=== PATIENT | male | born 1985 | race Caucasian/White ===

== ENCOUNTER 2017-03-19 15:08 | Emergency (ER) | payer OTHER ==
[~2017-03-19] VITALS: Ht 190.5 cm; Wt 90.9 kg
[~2017-03-19 15:08] MED LIST: ACET-1256 PO; IBUP-1450 PO
[2017-03-19 15:10] VITALS: TEMP 37.1; Ht 190.5 cm; Wt 90.9 kg
[2017-03-19] MEDS ORDERED: ACET-1256 PO (15:51)
[2017-03-19] MEDS ORDERED: IBUP-103 PO (15:51)
--- NOTE | 2017-03-19 16:23 | DIAGNOSTIC IMAGING REPORT ---
R EXTREMITY NONVASCULAR LIMITED CLINICAL HISTORY: Right axilla mass. Pt can locate COMPARISON STUDY: None. FINDINGS: Real-time sonographic imaging of the right axilla was performed. At the patient's area of interest there is a 2.5 x 2.2 x 1.9 cm complex cystic lesion which is well circumscribed. This abuts the skin surface. This is not demonstrate significant color flow. IMPRESSION: A 2.5 x 2.2 x 1.9 cm complex subcutaneous cystic lesion within the right axilla. This favors a complex cyst such as an epidermal inclusion cyst. However, a cystic mass or a necrotic lymph node is considered less likely but not entirely excluded. Recommend follow-up to ensure resolution. In addition, nonemergent fine-needle aspiration can also be performed. Electronically signed by: Primo Brock M.D. 03/19/2017 4:22 PM Dictated Date/Time: 03/19/2017 4:19 PM
[2017-03-19 17:00] VITALS: BP 116/71; PULSE 74; O2SAT 97
--- NOTE | 2017-03-19 17:34 | EMERGENCY ROOM VISIT NOTE ---
History First contact with patient: 15:14 Chief Complaint: FOREIGNBODY ANY BODY PART Stated Complaint: LUMP IN ARMPIT History of Present Illness The patient is a 31 year old male who presents to the Emergency Room with complaints of lump in his right armpit that is increasing in size over the past 2 days. The patient does not have injury or trauma. No recent infection, fever , chills, or other symptoms. He does not have a history of cancer. The lump is mildly uncomfortable, and he has not had similar symptoms in the past. He rates his discomfort a 4/10. Review of Systems More than 10 systems were reviewed and otherwise negative with the exception of history of present illness. Past Medical/Surgical History Medical Problems: (1) No Known Active Medical Problems Family History Hypertension Social History Smoking Status: Current Every Day Smoker Alcohol Use: heavy Drug Use: none Marital Status: single Occupation Status: employed Current/Historical Medications Scheduled PRN Acetaminophen (Tylenol), 1,000 MG PO Q6H PRN for Pain or Fever Ibuprofen Tab (Advil), 400-600 MG PO Q6H PRN for Pain or Fever Physical Exam Vital Signs Date Time Temp Pulse Resp B/P (MAP) Pulse Ox O2 Delivery O2 Flow Rate FiO2 03/19/17 17:00 74 16 116/71 97 03/19/17 15:10 37.1 102 18 163/116 99 Room Air Physical Exam VITALS: Vitals are noted on the nurse's note and reviewed by myself. Vital signs stable. GENERAL: Well-developed, well-nourished, white male, who is in no acute distress and resting comfortably. Patient is cooperative with the examination. NECK: Supple without nuchal rigidity. No lymphadenopathy. No thyromegaly. Cervical spine is nontender. HEART: Regular rate and rhythm without murmurs gallops or rubs. LUNGS: Clear to auscultation bilaterally without wheezes, rales or rhonchi. No retractions or accessory muscle use. MUSCULOSKELETAL: No muscle atrophy, erythema, or edema noted. Full range of motion without joint tenderness in all extremities. No appreciable infection of the right upper extremity or right-sided chest wall. There is a roughly 2 cm diameter palpable mass in the right axilla. This does not appear fluctuant and is not erythematous. It is firm, but compressible, and feels cystic-like in nature. NEURO: Patient was alert and oriented to person place and time. CN II through XII grossly intact. Medical Decision & Procedures ER Provider Diagnostic Interpretation: R EXTREMITY NONVASCULAR LIMITED CLINICAL HISTORY: Right axilla mass. Pt can locate COMPARISON STUDY: None. FINDINGS: Real-time sonographic imaging of the right axilla was performed. At the patient's area of interest there is a 2.5 x 2.2 x 1.9 cm complex cystic lesion which is well circumscribed. This abuts the skin surface. This is not demonstrate significant color flow. IMPRESSION: A 2.5 x 2.2 x 1.9 cm complex subcutaneous cystic lesion within the right axilla. This favors a complex cyst such as an epidermal inclusion cyst. However, a cystic mass or a necrotic lymph node is considered less likely but not entirely excluded. Recommend follow-up to ensure resolution. In addition, nonemergent fine-needle aspiration can also be performed. ED Course Physical exam and history were performed. Nursing notes, EMR, and Medication List were personally reviewed. Patient appears to have a palpable mass in the right axilla. This does not appear consistent with distinct abscess or infection. Ultrasound was performed and shows a complex cystic like structure as best described above. The patient will be treated conservatively with warm moist compresses. He will need to follow with his primary care physician for a fine-needle aspiration if symptoms persist. He was otherwise invited to return to the ER with any new, worsening, or concerning symptoms. The chart was completed utilizing [employer] Speech Voice Recognition Software. Grammatical errors, random word insertions, pronoun errors, and incomplete sentences are an occasional consequence of this system due to software limitations, ambient noise, and hardware issues. Any formal questions or concerns about the content, text, or information contained within the body of this dictation should be directly addressed to the provider for clarification. . Medical Decision Differential diagnosis includes, but is not limited to: Infection, abscess, lymph node, cyst, cancer, and others Impression Primary Impression: Cyst Departure Information Dispostion Home / Self-Care Condition FAIR Forms HOME CARE DOCUMENTATION FORM, IMPORTANT VISIT INFORMATION Patient Instructions [facility] Additional Instructions You were seen and evaluated today on an emergency basis only. This is not a substitute for, or an effort to provide, complete comprehensive medical care. It is not possible to recognize and treat all injuries or illnesses in a single emergency department visit. For this reason it is recommended that you followup with your primary care physician early this week for recheck of your condition. You will likely need a fine-needle aspiration of the cyst. This can be scheduled by your family doctor/PCP. Consider warm moist heat For baseline pain relief you may alternate ibuprofen and acetaminophen every 4 hours for pain control. Take 600 mg ibuprofen (Advil) and then 4 hours later take 1000 mg acetaminophen (Tylenol). Do not take more than 3000 mg acetaminophen in a single day. You are welcome to return to the emergency department anytime with new, worsening, or concerning symptoms.
== END 2017-03-19 17:02 | disposition home or self-care (01) ==
LOC: C.EDB 15:09 → C.EDD 17:02
DX: R22.9 Localized swelling, mass and lump, unspecified (principal); F17.200 Nicotine dependence, unspecified, uncomplicated; F10.10 Alcohol abuse, uncomplicated; Z82.49 Family history of ischemic heart disease and other diseases of the circulatory system

== ENCOUNTER 2017-03-24 14:53 | Emergency (ER) | payer SELFPAY ==
[~2017-03-24] VITALS: Ht 190.5 cm; Wt 91.3 kg
[~2017-03-24 14:53] MED LIST changes: +IBUP-103 PO; -IBUP-1450 PO
[2017-03-24 14:57] VITALS: TEMP 36.7; Ht 190.5 cm; Wt 91.3 kg
--- NOTE | 2017-03-24 15:31 | EMERGENCY ROOM VISIT NOTE ---
ED Visit Note First contact with patient: 15:01 CHIEF COMPLAINT: Infection of the right axilla HISTORY OF PRESENT ILLNESS: This 31-year-old male patient presents to the emergency department, ambulatory, approximately 7 days after they noticed a lump in the right axilla. He was instructed after being seen here in the emergency department to follow up with his primary care provider and have a fine needle aspiration scheduled with the general surgeon. The patient states he saw his PCP today, and was encouraged to come to the emergency department for incision and drainage of the lesion. The patient states "a few days ago" it became hard, red, and tender. It is slowly getting larger, more painful and tender. No fever, chills, or loss of appetite. There has been minimal clear drainage from the area. There was no injury to the area preceding the infection. They rate the pain as sharp and 3/10. Tetanus shot is up to date. They have tried warm moist compresses. The patient is not diabetic. The patient has no history of subcutaneous abscesses. REVIEW OF SYSTEMS: A 10 system review of systems was performed with positives and pertinent negatives listed in the history of present illness. All other systems were reviewed and are negative. ALLERGIES: None MEDICATIONS: None PMH: None SOCIAL HISTORY: The patient lives locally with family. He denies drug use. He admits to occasional alcohol use and smokes 1 pack of cigarettes per day. PHYSICAL EXAM: Vital Signs: Reviewed Nurse's notes, vital signs stable. GENERAL : This is a 31-year-old white male, no acute distress, non toxic in appearance, well-developed well-nourished. SKIN: There is an erythematous indurated area in the right axilla which measures about 4 cm in diameter. It is fluctuant but there is no pointing or drainage. There is a zone of inflammation around it but no lymphangitis. Capillary refill less than 2 seconds. MUSCULOSKELETAL: There is no limitation of the range of motion of the RUE. EMERGENCY DEPARTMENT COURSE: I examined the patient. He is a very poor historian, and is uncertain regarding exactly why he was sent here. He is unsure if the surgeon was contacted, but states "a nurse at my doctor's office sent me here to have the lump lanced." Previous medical records were reviewed, and I did review the ultrasound which was performed on March 19. This showed a complex subcutaneous cystic lesion within the right axilla which. A complex cyst such as an epidermal inclusion cyst. Unfortunately, a cystic mass or necrotic lymph node is considered less likely but not entirely excluded. The radiologist did recommend fine-needle aspiration. At the time the patient was previously here, it appears that the lump was not red, significantly tender, or fluctuant. I contacted the patient's PCP to discuss plan of care, as the patient is uncertain. They did contact Dr. Leblanc's office for evaluation, and initially had an appointment scheduled for tomorrow, but then were advised to send the patient to the ED for I&D. They did not have the information from the ultrasound which was performed here in the emergency department previously. I spoke with Dr. Temple regarding the patient. He recommended consult with general surgery, as we are uncertain exactly what the lesion is. I consulted with Mercedez Rose PA-C, who did see and evaluate the patient. She did speak with Dr. Sosa who did also see and evaluate the patient. Dr. Sosa did come to the emergency department to perform incision and drainage. Please see his dictation regarding this procedure. The patient was given his first dose of Bactrim while here in the emergency department. Case management did also work to schedule the patient with follow- up appointments with the wound center, at Dr. Sosa's request. Discharge instructions reviewed, and the patient was discharged home in stable condition. DIFFERENTIAL DIAGNOSIS: Abscess, cellulitis, necrotic lymph node, reactive lymph node, cyst, malignancy, and others DIAGNOSIS: Abscess of the right axilla Current/Historical Medications Scheduled Sulfa/Trimethoprim (Bactrim Ds 800MG/160MG), 1 TAB PO BID Scheduled PRN Acetaminophen (Tylenol), 1,000 MG PO Q6H PRN for Pain or Fever Ibuprofen Tab (Advil), 400-600 MG PO Q6H PRN for Pain or Fever Allergies Coded Allergies: No Known Allergies (Unverified , 03/24/17) Vital Signs Date Time Temp Pulse Resp B/P (MAP) Pulse Ox O2 Delivery O2 Flow Rate FiO2 03/24/17 17:25 80 20 142/91 98 03/24/17 14:57 36.7 89 16 165/103 99 Medications Administered Medications (Trade) Dose Ordered Sig/Pamela Route Start Time Stop Time Status Last Admin Dose Admin Trimethoprim/ Sulfamethoxazole (Septra Ds 800/ 160MG Tab) 1 tab NOW STAT PO 03/24/17 16:32 03/24/17 16:34 DC 03/24/17 17:11 1 TAB Departure Information Impression Primary Impression: Abscess of axilla, right Dispostion Home / Self-Care Condition GOOD Prescriptions Sulfa/Trimethoprim (Bactrim Ds 800MG/160MG) Tab 1 TAB PO BID for 10 Days, #20 TAB Prov: Marjan Grossman PA-C 03/24/17 Referrals Stephany Weiner C.R.N.P. (PCP) Benjamin Sosa MD [facility] Patient Instructions ED Abscess [place], [facility] Additional Instructions You were seen in the emergency department today for an abscess of the right axilla. This was incised and drained by Dr. Sosa, general surgeon. Trimethoprim-Sulfamethoxazole(Bactrim DS): Take one pill twice daily for 10 days for your right axillary infection. All antibiotics can cause diarrhea. If this occurs and you feel worse or it does not resolve in 1-2 days follow up with your doctor or return to the Emergency Department as this could be signs of serious underlying problems. Any medication can cause an allergic reaction, stop the pills immediately and return to the ER for rash, hives, breathing difficulties, or swelling. Ibuprofen(Motrin, Advil) may be used for fever or pain. Use 600mg every six hours as needed. Take with food. Avoid using more than 2400mg in a 24 hour period. Do not use 2400mg per day for more than three consecutive days without physician direction. Prolonged inappropriate use can lead to stomach upset or ulcers. (AND/OR) Acetaminophen(Tylenol) may be used for fever or pain. Use 1000mg every six hours as needed. Avoid using more than 3000mg in a 24 hour period. Please follow-up at the wound care center tomorrow (Tuesday) and Tuesday, per Dr. Sosa's instructions for re-check of the abscess and possible re-packing. Please follow-up with Dr. Sosa outpatient in the office in 2 weeks for removal of the cyst. You were provided the information to contact their office outpatient. If the outer bandage becomes saturated with pus or blood, or gets dirty, please remove the outer gauze, replace it with more gauze, and re-tape the gauze to the skin. Do not pull on the packing which was placed in the open wound. Return to the ED for worsening redness, swelling, purulent drainage, fever, chills, nausea, vomiting, or other concerning symptoms.
[2017-03-24] MEDS ORDERED: XYLOCAINE 1%/SOD BICARB 20 ML VIAL INFIL STA (16:32)
[2017-03-24] MEDS ORDERED: SULFAMETHOXAZOLE/TRIMETHOPRIM DS 800/160MG TAB PO STA (16:32)
--- NOTE | 2017-03-24 17:11 | Surgery Consultation ---
Consultation Date of Consultation: Mar 24, 2017. Attending Physician: History of Present Illness HISTORY OF PRESENT ILLNESS: This 31-year-old male patient presents to the emergency department, ambulatory, approximately 7 days after they noticed a lump in the right axilla. He was instructed after being seen here in the emergency department to follow up with his primary care provider and have a fine needle aspiration scheduled with the general surgeon. The patient states he saw his PCP today, and was encouraged to come to the emergency department for incision and drainage of the lesion. The patient states "a few days ago" it became hard, red, and tender. It is slowly getting larger, more painful and tender. No fever, chills, or loss of appetite. There has been minimal clear drainage from the area. There was no injury to the area preceding the infection. They rate the pain as sharp and 3/10. Tetanus shot is up to date. They have tried warm moist compresses. The patient is not diabetic. The patient has no history of subcutaneous abscesses. I saw pt at ER, I reviewed pt's H/P with pt, Past Medical/Surgical History Medical Problems: (1) Alcohol dependence Status: Acute (2) Cyst Status: Acute (3) Left leg swelling Status: Acute (4) Lower leg pain Status: Acute (5) Rhabdomyolysis Status: Acute (6) Tachycardia Status: Acute (7) Transaminitis Status: Acute Family History Hypertension Social History Smoking Status: Current Every Day Smoker Smokeless Tobacco Use: No Alcohol Use: none Drug Use: none Marital Status: single Occupation Status: employed Allergies Coded Allergies: No Known Allergies (Unverified , 03/24/17) Home Medications Scheduled PRN Acetaminophen (Tylenol), 1,000 MG PO Q6H PRN for Pain or Fever Ibuprofen Tab (Advil), 400-600 MG PO Q6H PRN for Pain or Fever Review of Systems Constitutional: No fever, No chills, No sweats, No weight loss, No weakness, No fatigue, No problem reported Eyes: No worsening of vision, No eye pain, No redness, No discharge, No diplopia, No problem reported ENT: No hearing loss, No unusual epistaxis, No nasal symptoms, No sore throat, No tinnitus, No dental problems, No trouble swallowing, No problem reported Respiratory: No cough, No sputum, No wheezing, No shortness of breath, No dyspnea on exertion, No dyspnea at rest, No hemoptysis, No problem reported Cardiovascular: No chest pain, No orthopnea, No PND, No edema, No claudication , No palpitations, No problem reported Abdomen: No pain, No nausea, No vomiting, No diarrhea, No constipation, No GI bleeding, No problem reported Musculoskeletal: No joint pain, No muscle pain, No swelling, No calf pain, No problem reported Genitourinary - Male: No hematuria, No dysuria, No urinary frequency, No urinary urgency, No urinary hesitancy, No urinary retention, No urinary incontinence, No penile discharge, No lesions, No impotence, No problem reported Neurologic: No memory loss, No paralysis, No weakness, No numbness/tingling, No vertigo, No balance problems, No problem reported Psychiatric: No depression symptoms, No anhedonism, No anxiety, No insomnia, No substance abuse, No problem reported Endocrine: No fatigue, No excessive thirst, No excessive urination, No problem reported Hematologic / Lymphatic: No abnormal bleeding/bruising, No clotting problems, No swollen lymph nodes, No night sweats, No problem reported Allergic / Immunologic: No environmental allergies, No seasonal allergies, No pet sensitivities, No food allergies, No hives, No frequent infections, No poor healing, No prolonged convalescence, No problem reported Physical Exam Date Time Temp Pulse Resp B/P (MAP) Pulse Ox O2 Delivery O2 Flow Rate FiO2 03/24/17 14:57 36.7 89 16 165/103 99 General Appearance: WD/WN, no apparent distress Head: normocephalic Eyes: normal inspection ENT: normal ENT inspection Neck: supple, no JVD Respiratory/Chest: chest non-tender, lungs clear, normal breath sounds Cardiovascular: regular rate, rhythm, no edema, no gallop, no JVD, no murmur Abdomen/GI: normal bowel sounds, non tender, soft Extremities/Musculoskelatal: normal inspection, no calf tenderness, normal capillary refill Neurologic/Psych: no motor/sensory deficits, alert, normal mood/affect Skin: + pertinent finding (a large abscess on right axillary, size 3x4cm, tenderness, redness, ) Assessment & Plan Assessment: pt is a 31 year old male who presents to ER with 1 week history redness tenderness at right axillary, IMP: abscess on right axillary Plan, I recommend to do I/D abscess at right axillary at bedside, D/W Benefits, risks and alternatives of the procedure, the risks - infection, bleeding, recurrence, pt understood, he agrees with the plan, I answered all questions, under local anesthesia, I/D abscess at right axillary done, Pt tolerated the procedure well, F/U wound care for packing change bactrim 800/160 one tab po bid x 10 days, F/U Ian Vora 2 weeks [phone]
--- NOTE | 2017-03-24 17:13 | [facility] Post Operative Brief Note ---
Immediate Operative Summary Operative Date Mar 24, 2017. Pre-Operative Diagnosis abscess on right axillary Post-Operative Diagnosis same Procedure(s) Performed I/D abscess on right axillary Surgeon Benjamin Sosa MD Tube Bender Hand Surgeon(s) none Estimated Blood Loss 3 ml Findings Consistent with Post-Op Diagnosis abscess on right axillary, wound culture sent Fluids (cc crystalloids) none Specimens wound culture Drains packing Anesthesia Type Local Complication(s) none Disposition Accompanied Pt To Recover: yes Disposition:
[2017-03-24] MEDS ORDERED: SULF800T23 PO (17:16)
[2017-03-24 17:25] VITALS: BP 142/91; PULSE 80; O2SAT 98
--- NOTE | 2017-03-24 17:42 | OPERATIVE REPORT ---
DATE OF OPERATION: 03/24/2017 PREOPERATIVE DIAGNOSIS: Abscess on the right axilla. POSTOPERATIVE DIAGNOSIS: Same. PROCEDURE: I&D abscess on the right axilla. SURGEON: Benjamin Sosa MD. ANESTHESIA: Local. ESTIMATED BLOOD LOSS: About 1 mL. FINDINGS: Abscess on the right axilla. COMPLICATIONS: None. INDICATIONS FOR THE PROCEDURE: This is a 31-year-old gentleman who presented to the ED with 1 week history of right axillary pain and the patient developed abscess on the right axilla. The patient will be required to do I&D abscess on the right axilla. I did talk to the patient about the benefit and risk, alternate procedure. I indicated the risks may include but not limited such as bleeding, infection, recurrence. The patient understands. He signed informed consent and I answered all questions. DETAILS OF PROCEDURE: We did I&D abscess on the right axilla at the patient's bedside at the ER and the patient right axilla was prepped and draped in routine sterile fashion. After time out, I used 1% lidocaine to infiltrate around the abscess. Abscess size about 3 x 4 cm, tenderness and redness. Then I used a 15 blade, I opened the abscess and there were multiple pus come out. Then once we cleaned out the pus, we sent the wound culture by packing the wound. Hemostasis obtained. Then we put the dressing on. The patient tolerated the procedure well. After procedure, I gave patient the postop care instructions. Also, informed the ER doctor about the wound culture and patient will follow up wound care center for packing change and the patient will receive Bactrim 800/160 one tab p.o. 2 times a day for 10 days. I will follow up the patient in my office in 2 weeks. I attest to the content of the Intraoperative Record and any orders documented therein. Any exception s are noted below.
== END 2017-03-24 17:31 | disposition home or self-care (01) ==
LOC: C.EDB 14:55 → C.EDD 17:31
DX: L02.411 Cutaneous abscess of right axilla (principal); F17.210 Nicotine dependence, cigarettes, uncomplicated; Z82.49 Family history of ischemic heart disease and other diseases of the circulatory system

== ENCOUNTER 2020-10-02 22:27 | Inpatient (IN) ==
[2020-10-02] MEDS ORDERED: dexAMETHasone**PF** 10 MG/ML VIAL IV ONE (22:49)
[2020-10-02] MEDS ORDERED: AMPICILLIN/SULBACTAM SOD 3,000 MG in 0.9 % SODIUM CHLORIDE 100 ML IV STA (22:49)
[2020-10-02] MEDS ORDERED: SODIUM CHLORIDE 0.9% 1000ML 1,000 ML IV SCH (23:00)
[2020-10-02 23:18] LABS: Basophils # (auto) 0.02 K/uL (0-0.2); Basophils % (auto) 0.2 %; Eosinophils # (auto) 0.05 K/uL (0-0.5); Eosinophils % (auto) 0.6 %; Hematocrit (blood only) 49.9 % (42-52); Hemoglobin 17.4 g/dL (14.0-18.0); Immature Granulocytes # (auto) 0.02 K/uL (0.00-0.02); Immature Granulocytes % (auto) 0.2 %; Lymphocytes # (auto) 1.34 K/uL (1.2-3.4); Lymphocytes % (auto) 15.4 %; Mean Corpuscular Hemoglobin 33.4 pg (25-34); Mean Corpuscular Hgb Conc 34.9 g/dL (32-36); Mean Corpuscular Volume 95.8 fL (80-100); Mean Platelet Volume 10.1 fL (7.4-10.4); Monocytes # (auto) 0.45 K/uL (0.11-0.59); Monocytes % (auto) 5.2 %; Neutrophils # (auto) 6.81 K/uL (1.4-6.5); Neutrophils % (auto) 78.4 %; Platelet Count 125 K/uL (130-400); RDW Coefficient of Variation 16.2 % (11.5-14.5); RDW Standard Deviation 55.2 fL (36.4-46.3); Red Blood Count 5.21 M/uL (4.7-6.1); White Blood Count 8.69 K/uL (4.8-10.8)
[2020-10-02 23:22] LABS: iSTAT Creatinine 0.7 mg/dl (0.6-1.3); iSTAT Ionized Calcium 1.02 mmol/l (1.12-1.32); iSTAT Potassium 3.8 mmol/L (3.3-5.0)
[2020-10-02 23:26] LABS: Partial Thromboplastin Ratio 1.1; Partial Thromboplastin Time 28.3 Seconds (21.0-31.0); Prothrombin Time 10.4 Seconds (9.0-12.0)
[2020-10-02 23:36] LABS: Albumin Level 4.1 gm/dl (3.4-5.0); Aspartate Aminotransferase 75 U/L (15-37); BUN Creatinine Ratio 8.4 (10-20); Blood Urea Nitrogen 5 mg/dl (7-18); Calcium 8.9 mg/dl (8.5-10.1); Carbon Dioxide 22 mmol/L (21-32); Chloride 101 mmol/L (98-107); Creatinine Clr Calc Pharmacy 214.8 ml/min; Est GFR (African American) > 150.0 ml/min; Glucose 108 mg/dl (70-99); Magnesium 1.6 mg/dl (1.8-2.4); Potassium 3.7 mmol/L (3.5-5.1); Sodium 133 mmol/L (136-145)
[2020-10-02] MEDS ORDERED: OPTIRAY 320 100ml IV ONE (23:42)
[2020-10-02 23:45] LABS: Alanine Aminotransferase 70 U/L (12-78); Albumin Globulin Ratio 0.9 (0.9-2); Alkaline Phosphatase 93 U/L (45-117); Bilirubin,Total 1.1 mg/dl (0.2-1); Globulin 4.4 gm/dl (2.5-4.0); Total Protein 8.5 gm/dl (6.4-8.2)
[2020-10-03] MEDS ORDERED: SODIUM CHLORIDE 0.9% 1000ML 1,000 ML IV ONE (00:10)
[2020-10-03] MEDS ORDERED: SODIUM CHLORIDE 0.9% 500 ML IV ONE (00:12)
--- NOTE | 2020-10-03 00:46 | Emergency Department Note ---
History of Present Illness General Chief complaint: Facial Injury/Pain Stated complaint: L SIDE OF JAW BONE SWOLLEN Time Seen by Provider: 10/02/20 22:39 History of Present Illness Maximum Pain Intensity: 4 This 34 yo presents to the ER complaining of facial pain and swelling Location: Face Quality: Swollen Severity: Moderate Duration: Today Timing: Today Context: Patient was concerned and came in Modifying factors: better with nothing; worse with chewing Patient states the left side of his face is quite swollen. He states he knows he has bad teeth. He does smoke. Patient denies fevers, neck stiffness, flulike illness. He has received his Covid vaccine. Home Medications Medication Instructions Recorded Confirmed Type lisinopril 20 mg tablet 20 mg PO DAILY #30 tab 01/01/19 10/02/20 Rx metoprolol succinate 25 mg 25 mg PO DAILY #90 tab 04/04/19 10/02/20 Rx tablet,extended release 24 hr amoxicillin 875 mg-potassium 1 tab PO BID #30 tab 10/03/20 Rx clavulanate 125 mg tablet (Augmentin) Allergies Allergy/AdvReac Type Severity Reaction Status Date / Time No Known Allergies Allergy Unverified 10/02/20 23:20 Past Med/Surg History Medical History (Updated 10/03/20 @ 18:05 by Emmanuel Harvey MD) Hypertension Noncompliance with medication regimen Splenomegaly Tobacco dependence Surgical History No history of previous surgery Family History Denies family history of Ovarian cancer Prostate cancer Myocardial infarction Breast cancer Colorectal cancer Social History Smoking Status: Current every day smoker Tobacco Type: Cigarettes Second Hand Exposure: Yes; Hx Alcohol Use: No Hx Substance Use: No Preferred Language: German Communication Ability: Effective Visual Impairment: No Limitations Hearing Ability: Normal Patient Access Manager Required: No Beliefs That Will Affect Care: None marital status: Single Current Living Situation: Significant Other Current Living Situation Comment: coworkers current occupational status: employed current occupation: cook Feels Safe at Home: Yes Childhood Exposure to Second-Hand Smoke: Yes Dental Care, Regularly: No Physical Activity Frequency: Does not Exercise Seatbelt Use: never Sunscreen Use: No Assistive Devices: Glasses Review of Systems A total of 10 systems reviewed and were otherwise negative Physical Exam Vital Signs Vital Signs - 24 hr 10/02/20 22:29 10/03/20 00:30 10/03/20 00:50 Temperature 37.0 C Temperature Source Temporal Artery Scan Pulse Rate 131 H 91 H Pulse Rhythm Regular Respiratory Rate 20 18 Respiratory Effort / Characteristics Non-Labored Spontaneous Non-Labored Spontaneous Respiratory Depth Normal Respiratory Pattern Regular Blood Pressure 153/99 H 132/85 Blood Pressure Mean 117 100 Pulse Oximetry 97 97 97 Oxygen Delivery Method Room Air Room Air Room Air Sepsis Recent Fever Within 48 Hours No Sepsis New/Unexplained Change in Mental Status No Sepsis Action Taken by Nursing No Action Required 10/03/20 01:00 Temperature Temperature Source Pulse Rate 107 H Pulse Rhythm Respiratory Rate 18 Respiratory Effort / Characteristics Respiratory Depth Respiratory Pattern Blood Pressure 129/88 Blood Pressure Mean 101 Pulse Oximetry Oxygen Delivery Method Sepsis Recent Fever Within 48 Hours Sepsis New/Unexplained Change in Mental Status Sepsis Action Taken by Nursing VITALS: Vitals are noted on the nurse's note and reviewed by myself. Vital signs reviewed. GENERAL: White male, in no acute distress, nondiaphoretic, well-developed well- nourished. SKIN: Left lower jawline erythematous and edematous concerning for infection, the rest of the the skin was without rashes, erythema, edema, or bruising. There is no tenting of the skin. Capillary reflex less than 2 seconds. HEAD: Normocephalic atraumatic. EARS: External auditory canals clear, tympanic membranes pearly chambers without er ythema or effusion bilaterally. EYES: Pupils equal round and reactive to light and accommodation. Conjunctivae without injection, sclerae without icterus. Extraocular movements intact. NOSE: Patent, turbinates without inflammation or discharge. Left-sided sinus tenderness. MOUTH: Mucous membranes moist. Left floor the mouth swollen concerning for Pancho's, pharynx without erythema or exudate. Uvula midline. Airway patent. Tongue does not deviate. Dental exam: Extensive dental decay on the left lower jawline with dental gumline swelling and trismus concerning for Pancho's NECK: Supple without nuchal rigidity. Left anterior cervical shotty lymphadenopathy. No thyromegaly. Cervical spine is nontender. No JVD. HEART: Mildly tachycardic rate and rhythm LUNGS: Clear to auscultation bilaterally without wheezes, rales or rhonchi. No retractions or accessory muscle use. ABDOMEN: Positive bowel sounds x 4. Normal tympanic percussion. Soft, nontender, without masses or organomegaly. Sheldon sign negative. No guarding or rebound tenderness. No CVA tenderness MUSCULOSKELETAL: No muscle atrophy, erythema, or edema noted. NEURO: Patient was alert and oriented to person place and time. Normal sensation to light and sharp touch. No focal neurological deficits. Course Administered Medications Discontinued Medications Dexamethasone (Dexamethasone Sod Inj 4 Mg/Ml Vial) Confirm Administered Dose 4 mg .ROUTE .ST-MED ONE Stop: 10/03/20 05:22 Last Admin: 10/03/20 05:47 Dose: Not Given Documented by: [id number] Dexamethasone Sodium Phosphate (DexamethasonePf 10 Mg/Ml Vial) 10 mg IV NOW ONE Stop: 10/02/20 22:50 Last Admin: 10/02/20 23:18 Dose: 10 mg Documented by: [id number] Sodium Chloride (Nss 1000ml) 1,000 mls @ 999 mls/hr IV .Q1H1M MENDOZA Stop: 10/03/20 00:00 Last Infusion: 10/03/20 00:27 Dose: 0 mls/hr Documented by: [id number] Admin: 10/02/20 23:20 Dose: 999 mls/hr Documented by: [id number] Ampicillin Sodium/Sulbactam Sodium 3,000 mg/ Sodium Chloride 108 mls @ 200 mls/hr IV NOW STA; Protocol Stop: 10/02/20 23:21 Last Infusion: 10/03/20 00:19 Dose: 0 mls/hr Documented by: [id number] Admin: 10/02/20 23:38 Dose: 200 mls/hr Documented by: [id number] Sodium Chloride (Nss 1000ml) 1,000 mls @ 999 mls/hr IV .Q1H1M ONE Stop: 10/03/20 01:10 Last Infusion: 10/03/20 01:49 Dose: 0 mls/hr Documented by: [id number] Admin: 10/03/20 00:40 Dose: 999 mls/hr Documented by: [id number] Sodium Chloride (Nss) 500 mls @ 999 mls/hr IV .Q31M ONE Stop: 10/03/20 00:42 Last Infusion: 10/03/20 01:15 Dose: 0 mls/hr Documented by: [id number] Admin: 10/03/20 00:40 Dose: 999 mls/hr Documented by: [id number] Ampicillin Sodium/Sulbactam Sodium 3,000 mg/ Sodium Chloride 108 mls @ 200 mls/hr IV Q6H MENDOZA; Protocol Stop: 10/10/20 02:30 Last Infusion: 10/03/20 18:40 Dose: 0 mls/hr Documented by: [id number] Admin: 10/03/20 17:50 Dose: 200 mls/hr Documented by: [id number] Infusion: 10/03/20 12:42 Dose: 0 mls/hr Documented by: [id number] Admin: 10/03/20 12:09 Dose: 200 mls/hr Documented by: [id number] Infusion: 10/03/20 06:46 Dose: 0 mls/hr Documented by: [id number] Admin: 10/03/20 06:12 Dose: 200 mls/hr Documented by: [id number] Sodium Chloride (Nss 1000ml) 1,000 mls @ 100 mls/hr IV .Q10H MENDOZA Stop: 10/03/20 23:57 Last Admin: 10/03/20 16:03 Dose: Not Given Documented by: [id number] Infusion: 10/03/20 14:17 Dose: 0 mls/hr Documented by: [id number] Admin: 10/03/20 04:14 Dose: 100 mls/hr Documented by: [id number] Dexamethasone 4 mg/ Syringe 1 mls @ 1 mls/min IV Q6H MENDOZA Stop: 11/02/20 05:59 Last Admin: 10/03/20 17:51 Dose: 1 mls/min Documented by: [id number] Admin: 10/03/20 12:09 Dose: 1 mls/min Documented by: [id number] Admin: 10/03/20 06:12 Dose: 1 mls/min Documented by: [id number] Magnesium Sulfate/Dextrose (Magnesium Sulfate / D5w) 1 gm in 100 mls @ 50 mls/hr IV ONE ONE Stop: 10/03/20 05:57 Last Infusion: 10/03/20 06:39 Dose: 0 mls/hr Documented by: [id number] Admin: 10/03/20 04:14 Dose: 50 mls/hr Documented by: [id number] Ioversol (Optiray 320 100ml) 100 ml IV ONCE ONE Stop: 10/02/20 23:43 Last Admin: 10/02/20 23:42 Dose: 93 ml Documented by: [id number] Nicotine (Nicotine 21 Mg/24 Hr Tdsy) 21 mg TD NOW STA Stop: 10/03/20 01:10 Last Admin: 10/03/20 04:13 Dose: 21 mg Documented by: [id number] Nicotine (Nicotine 21 Mg/24 Hr Tdsy) Confirm Administered Dose 21 mg TD .STK-MED ONE Stop: 10/03/20 03:16 Last Admin: 10/03/20 04:14 Dose: Not Given Documented by: [id number] Medical Decision Making Medical Records Attestation: I reviewed the patient's medical records. Home Medications Current Medication List: was personally reviewed by me Laboratory Data Attestation: I reviewed the patient's lab results. Result diagrams: 10/03/20 09:34 10/02/20 23:00 Lab Results 10/02/20 10/02/20 10/02/20 Range/Units 23:00 23:00 23:00 WBC 8.69 (4.8-10.8) K/uL RBC 5.21 (4.7-6.1) M/uL Hgb 17.4 (14.0-18.0) g/dL POC Hgb (14.0-18.0) g/dl Hct 49.9 (42-52) % POC Hct (42-52) % MCV 95.8 (80-100) fL MCH 33.4 (25-34) pg MCHC 34.9 (32-36) g/dL RDW Std Deviation 55.2 H (36.4-46.3) fL RDW Coeff of Simon 16.2 H (11.5-14.5) % Plt Count 125 L (130-400) K/uL MPV 10.1 (7.4-10.4) fL Immature Gran % (Auto) 0.2 % Neut % (Auto) 78.4 % Lymph % (Auto) 15.4 % [place] % (Auto) 5.2 % Eos % (Auto) 0.6 % Baso % (Auto) 0.2 % Neut # (Auto) 6.81 H (1.4-6.5) K/uL Lymph # (Auto) 1.34 (1.2-3.4) K/uL [place] # (Auto) 0.45 (0.11-0.59) K/uL Eos # (Auto) 0.05 (0-0.5) K/uL Baso # (Auto) 0.02 (0-0.2) K/uL Immature Gran # (Auto) 0.02 (0.00-0.02) K/uL PT 10.4 (9.0-12.0) Seconds INR 1.0 (0.9-1.1) APTT 28.3 (21.0-31.0) Seconds PTT Ratio 1.1 POC Sodium (135-144) mmol/L Sodium 133 L (136-145) mmol/L POC Potassium (3.3-5.0) mmol/L Potassium 3.7 (3.5-5.1) mmol/L POC Chloride (101-112) mmol/L Chloride 101 (98-107) mmol/L Carbon Dioxide 22 (21-32) mmol/L POC Total CO2 (24-31) mmol/L Anion Gap 10.0 (3-11) POC Anion Gap (16-25) mmol/L POC BUN (7-18) mg/dl BUN 5 L (7-18) mg/dl Creatinine 0.59 L (0.6-1.4) mg/dl POC Creatinine (0.6-1.3) mg/dl Est Cr Clr Drug Dosing 214.8 ml/min Est GFR ( Amer) > 150.0 ml/min Est GFR (Non-Af Amer) 134.0 ml/min BUN/Creatinine Ratio 8.4 L (10-20) Glucose 108 H (70-99) mg/dl POC Glucose (other) (70-99) mg/dl Lactate (0.4-2.0) mmol/L Calcium 8.9 (8.5-10.1) mg/dl POC Ioniz Calcium Aure (1.12-1.32) mmol/l Magnesium 1.6 L (1.8-2.4) mg/dl Total Bilirubin 1.1 H (0.2-1) mg/dl AST 75 H (15-37) U/L ALT 70 (12-78) U/L Alkaline Phosphatase 93 (45-117) U/L Total Protein 8.5 H (6.4-8.2) gm/dl Albumin 4.1 (3.4-5.0) gm/dl Globulin 4.4 H (2.5-4.0) gm/dl Albumin/Globulin Ratio 0.9 (0.9-2) COVID-19 Eval Order SARS-CoV-2 (PCR) (Negative) 10/02/20 10/02/20 10/02/20 Range/Units 23:09 23:12 23:25 WBC (4.8-10.8) K/uL RBC (4.7-6.1) M/uL Hgb (14.0-18.0) g/dL POC Hgb 19.0 H (14.0-18.0) g/dl Hct (42-52) % POC Hct 56 H (42-52) % MCV (80-100) fL MCH (25-34) pg MCHC (32-36) g/dL RDW Std Deviation (36.4-46.3) fL RDW Coeff of Simon (11.5-14.5) % Plt Count (130-400) K/uL MPV (7.4-10.4) fL Immature Gran % (Auto) % Neut % (Auto) % Lymph % (Auto) % [place] % (Auto) % Eos % (Auto) % Baso % (Auto) % Neut # (Auto) (1.4-6.5) K/uL Lymph # (Auto) (1.2-3.4) K/uL [place] # (Auto) (0.11-0.59) K/uL Eos # (Auto) (0-0.5) K/uL Baso # (Auto) (0-0.2) K/uL Immature Gran # (Auto) (0.00-0.02) K/uL PT (9.0-12.0) Seconds INR (0.9-1.1) APTT (21.0-31.0) Seconds PTT Ratio POC Sodium 136 (135-144) mmol/L Sodium (136-145) mmol/L POC Potassium 3.8 (3.3-5.0) mmol/L Potassium (3.5-5.1) mmol/L POC Chloride 97 L (101-112) mmol/L Chloride (98-107) mmol/L Carbon Dioxide (21-32) mmol/L POC Total CO2 22 L (24-31) mmol/L Anion Gap (3-11) POC Anion Gap 22.0 (16-25) mmol/L POC BUN 4 L (7-18) mg/dl BUN (7-18) mg/dl Creatinine (0.6-1.4) mg/dl POC Creatinine 0.7 (0.6-1.3) mg/dl Est Cr Clr Drug Dosing ml/min Est GFR ( Amer) ml/min Est GFR (Non-Af Amer) ml/min BUN/Creatinine Ratio (10-20) Glucose (70-99) mg/dl POC Glucose (other) 111 H (70-99) mg/dl Lactate 2.8 H* (0.4-2.0) mmol/L Calcium (8.5-10.1) mg/dl POC Ioniz Calcium Aure 1.02 L (1.12-1.32) mmol/l Magnesium (1.8-2.4) mg/dl Total Bilirubin (0.2-1) mg/dl AST (15-37) U/L ALT (12-78) U/L Alkaline Phosphatase (45-117) U/L Total Protein (6.4-8.2) gm/dl Albumin (3.4-5.0) gm/dl Globulin (2.5-4.0) gm/dl Albumin/Globulin Ratio (0.9-2) COVID-19 Eval Order Covid19 at [facility] SARS-CoV-2 (PCR) (Negative) 10/02/20 10/03/20 Range/Units 23:25 01:25 WBC (4.8-10.8) K/uL RBC (4.7-6.1) M/uL Hgb (14.0-18.0) g/dL POC Hgb (14.0-18.0) g/dl Hct (42-52) % POC Hct (42-52) % MCV (80-100) fL MCH (25-34) pg MCHC (32-36) g/dL RDW Std Deviation (36.4-46.3) fL RDW Coeff of Simon (11.5-14.5) % Plt Count (130-400) K/uL MPV (7.4-10.4) fL Immature Gran % (Auto) % Neut % (Auto) % Lymph % (Auto) % [place] % (Auto) % Eos % (Auto) % Baso % (Auto) % Neut # (Auto) (1.4-6.5) K/uL Lymph # (Auto) (1.2-3.4) K/uL [place] # (Auto) (0.11-0.59) K/uL Eos # (Auto) (0-0.5) K/uL Baso # (Auto) (0-0.2) K/uL Immature Gran # (Auto) (0.00-0.02) K/uL PT (9.0-12.0) Seconds INR (0.9-1.1) APTT (21.0-31.0) Seconds PTT Ratio POC Sodium (135-144) mmol/L Sodium (136-145) mmol/L POC Potassium (3.3-5.0) mmol/L Potassium (3.5-5.1) mmol/L POC Chloride (101-112) mmol/L Chloride (98-107) mmol/L Carbon Dioxide (21-32) mmol/L POC Total CO2 (24-31) mmol/L Anion Gap (3-11) POC Anion Gap (16-25) mmol/L POC BUN (7-18) mg/dl BUN (7-18) mg/dl Creatinine (0.6-1.4) mg/dl POC Creatinine (0.6-1.3) mg/dl Est Cr Clr Drug Dosing ml/min Est GFR ( Amer) ml/min Est GFR (Non-Af Amer) ml/min BUN/Creatinine Ratio (10-20) Glucose (70-99) mg/dl POC Glucose (other) (70-99) mg/dl Lactate 2.4 H* (0.4-2.0) mmol/L Calcium (8.5-10.1) mg/dl POC Ioniz Calcium Aure (1.12-1.32) mmol/l Magnesium (1.8-2.4) mg/dl Total Bilirubin (0.2-1) mg/dl AST (15-37) U/L ALT (12-78) U/L Alkaline Phosphatase (45-117) U/L Total Protein (6.4-8.2) gm/dl Albumin (3.4-5.0) gm/dl Globulin (2.5-4.0) gm/dl Albumin/Globulin Ratio (0.9-2) COVID-19 Eval Order SARS-CoV-2 (PCR) POSITIVE A* (Negative) Imaging Data Attestation: I personally reviewed and interpreted this imaging study as follows: MDM Narrative Prior records reviewed and summarized as above. Triage Nursing notes reviewed. Additional history obtained from nursing. The patient's history was concerning for mouth problem. Differential diagnosis: Etiologies such as cellulitis, abscess, Pancho's angina, gingivitis, dental cavity, dental decay, dental infection, as well as others were entertained.. Physical examination: Patient's exam is currently concerning for Pancho's angina ER treatment provided: Unasyn, IV fluids On reassessment the patient felt better. Diagnostics interpreted by me: The labs revealed elevated lactic and repeat was ordered and slightly improved positive Covid Imaging studies: CT NECK: Findings consistent with odontogenic infection arising fromleft second mandibular molar where there is periapical and large cortical breakthrough mediallywith associated abscess measuring 1.7 x 1.1 x 1.1 cm. Adjacent soft tissue swelling/inflammatorychanges in the left submandibular space. Overlying platysmal thickening and subcutaneous fat stranding, extending to right. There is also probable involvement of the left sublingual space, suggesting Pancho's angina. Large caries at left second and third mandibular molars. Also large matrin and periapical lucencyat right third mandibular molar. Multiple additional caries. Hyperenhancing and relativelyprominent left submandibular and level II lymph nodes, likelyreactive. Mildlyenlarged right axillaryand left upper paratracheal lymph nodes, measuring 1 cmin short axis. Complete opacification of maxillarysinuses. Partial opacification of frontal sinuses and ethmoid air cells. Radiologist: Galo Avery MD Consultation: A consultation was placed with Dr. Florence who is not on-call for oral surgery and recommends medical admission, antibiotics, oral surgery consultation and he is unfortunately out of town and cannot see the patient. Dr. Mei, hospitalist was consulted. The case was discussed and diagnostics were reviewed. The patient was evaluated in the ER for further treatment. Dr Garcia was consulted and states this is an oral surgeon problem. He recommends their consultation and medical admission. I put a page out to oral surgery, Dr. Gramajo for over an hour with no response. The other oral surgeon team was consulted, Dr Florence, and cannot see the patient as he is currently out of town but does recommend medical admission. Medicine was consulted. This appears to be possible Pancho's angina. Patient started on the antibiotics immediately. Imaging was ordered. Oral surgery, ENT and Hospitalist were consulted. He will be admitted. By the evaluation outlined above emergent etiologies such as meningitis as well as others were deemed relatively unlikely. The pt informed about the findings as listed above. All questions were answered and pleased with the treatment. The chart was completed utilizing [employer] Speech voice recognition software. Grammatical errors, random word insertions, pronoun errors, and incomplete sentences are an occassional consequence of this system due to software limit ations, ambient noise, and hardware issues. Any formal questions or concerns about the content, text, or information contained within the body of this dictation should be directly addressed to the physician medical assistant dermatology for clarification. Impression & Plan Pancho's angina Discharge Plan Visit Data Chief Complaint: Facial Injury/Pain Stated Complaint: L SIDE OF JAW BONE SWOLLEN ED Provider: [facility] ED Midlevel Provider: Katie Ramírez Discharge Problem: Pancho's angina Patient Disposition: Home - Self-Care Condition: Fair Discharge Instructions Interventions: ED Discharge Assessment Last Done: 10/03/20 03:52
[2020-10-03] MEDS ORDERED: NICOTINE 21 MG/24 HR TDSY TD STA (01:09)
--- NOTE | 2020-10-03 02:35 | History & Physical Report ---
Date of Service October 03, 2020 Assessment & Plan (1) COVID: Plan: - tested positive on admission - continue dexamethasone for possible ludwigs angina as above - will hold off on further treatments as patient does not appear to symptomatic from COVID 19 - covid precautions (2) Periodontal abscess: Plan: Patient with infection from let 2nd mandibular molar with abscess formation as well as adjacent soft tissue swelling in the left submandibular space, probable involvement of the left sublingual space - concerning for Ludwigs angina per STAT rad report. He has mild elevation of the floor of the mouth as well as swelling of left neck. Airway is patent. -Unasyn -Dexamethasone 4mg IV q 6 hours -OMFS Consultation appreciated (3) Tobacco dependence: Plan: - nicoderm patch (4) Thrombocytopenia: Plan: - platelets at 125 k/Ul - likely reactive due to infection - trend CBC (5) Hypomagnesemia: Plan: - Mag level 1.6 on admission - replacement ordered - recheck level in am (6) Benign essential hypertension: Plan: - hold home antihypertensives while NPO DVT ppx: will hold off on order on starting, as patient likely to have surgical intervention today (oral abscess drainage). Consider initiating Lovenox, covid protocol post-operatively Diet: NPO Dispo: PCU Code: Full, I discussed with patient. Recommend CM assist patient with establishing with local dental care (ie [facility], etc) History of Present Illness Chief Complaint: facial swelling and pain Primary Care Provider: Artemio Friend, III, KARYN Kyaw is a 34 yo gentleman who came to the [facility] ED for evaluation of left sided jaw/facial swelling. It started on the morning of 10/02/20 when he woke up; it progressed as the day went on. He denies any drooling, changes to his voice, difficulty swallowing (although it is slightly uncomfortable to do so), or trouble breathing. Prior to this, he had been in his usual state of health. No fevers/chills, congestion, cough, diarrhea, nausea/vomiting, chest pain, rashes. He has not lost his sense of taste or smell. He was vaccinated against COVID 19. He denies any known positive contacts. He does not have any formal dental care - he has apparently contacted [facility] but he was told he makes "too much." In the ED, he was afebrile, HR was elevated to 109, BP was stable. Breathing well on room air. WBC was normal. Hgb was normal, platelets low at 125k/uL. Lactate elevated to 2.8. Coags WNL. Mag low at 1.6, electrolytes otherwise WNL. COVID 19 positive. Blood cultures pending. Soft Tissues Neck CT showing evidence of an odontogenic infection from the left 2nd mandibular molar with associated abscess formation. Adjacent soft tissue swelling in the left submandibular space; probable involvement of the left sublingual space, suggestive of Ludwigs angina. Patient was given 10mg IV Dexamethasone, 3g IV Unasyn, 2.5 liters of NSS in the ED. Allergies Allergy/AdvReac Type Severity Reaction Status Date / Time No Known Allergies Allergy Unverified 10/02/20 23:20 Home Medications Medication Instructions Recorded Confirmed Type lisinopril 20 mg tablet 20 mg PO DAILY #30 tab 01/01/19 10/02/20 Rx metoprolol succinate 25 mg 25 mg PO DAILY #90 tab 04/04/19 10/02/20 Rx tablet,extended release 24 hr amoxicillin 875 mg-potassium 1 tab PO BID #30 tab 10/03/20 Rx clavulanate 125 mg tablet (Augmentin) Past Med/Surg History Medical History (Updated 10/03/20 @ 18:05 by Emmanuel Harvey MD) Hypertension Noncompliance with medication regimen Splenomegaly Tobacco dependence Surgical History No history of previous surgery Family History Denies family history of Ovarian cancer Prostate cancer Myocardial infarction Breast cancer Colorectal cancer Social History Smoking Status: Current every day smoker Tobacco Type: Cigarettes Second Hand Exposure: Yes; Hx Alcohol Use: No Hx Substance Use: No Preferred Language: Yakut Communication Ability: Effective Visual Impairment: No Limitations Hearing Ability: Normal Tempering Oven Operator Required: No Beliefs That Will Affect Care: None marital status: Single Current Living Situation: Significant Other Current Living Situation Comment: coworkers current occupational status: employed current occupation: cook Other Information That Helps Us Care for You: No Feels Safe at Home: Yes Safety Concerns: Feels Safe At This Time Childhood Exposure to Second-Hand Smoke: Yes Dental Care, Regularly: No Physical Activity Frequency: Does not Exercise Seatbelt Use: never Sunscreen Use: No Assistive Devices: Glasses Review of Systems Review of Systems: All systems reviewed & are unremarkable except as noted in HPI & below Physical Exam Constitutional: WD/WN, vitals as above cooperative and comfortable; no acute distress Eyes: + anicteric sclerae ENMT: Mouth: + tongue abnormality (sublingual area on left is elevated ) and + poor dentition; no muffled voice and no drooling left sided jaw swelling; no brawny coloration of next Neck: trachea midline and + anterior neck swelling (Left side) Respiratory: normal respiratory effort, lungs clear to auscultation no respiratory distress and no cough Cardiovascular: RRR, no murmur, no edema Heart Sounds: normal S1 and normal S2 Extremities: no pedal edema Gastrointestinal (Abdomen): normal bowel sounds, soft, nontender, no hepatosplenomegaly Musculoskeletal: Head/Neck/Chest: normocephalic and head atraumatic Skin: no rashes, warm and dry Neurologic: moves all extremities Psychiatric: A+Ox3, euthymic affect Results & Data Results & Data ([facility]) Vital Signs (Past 12 Hours) Vital Signs Temp Pulse Resp BP Pulse Ox 10/03/20 00:50 97 10/03/20 00:30 91 H 18 132/85 97 10/02/20 22:29 37.0 C 131 H 20 153/99 H 97 Supervising Physician Co-Signing Physician Notes Patient seen and examined, chart reviewed, case discussed with Dr. Boogie and I agree with her assessment and plan as documented above. In brief, patient is a 34yo male presnenting with left facial swelling, found with odontogenic infection of the left mandible with surrounding edema. Findings concerning for possible Ludwigs angina per radiology report. Patient is currently afebrile, HD stable, nontoxic in appearance. No stridor, drooling. No evidence of airway involvement. He does have slight elevation of the floor of the mouth as well as swelling of the left neck and submandibular region. Exam is otherwise unremarkable Assessment/Plan -Admit to PCU for close airway monitoring -Dexamethasone 10mg IV given in ER - will continue -Unasyn -OMFS consultation appreciated re: abscess drainage? -Remainder of plan as above Resident Activity Tracking Resident Involvement: Resident Care Provided Care Provided: Adult [facility]
[2020-10-03] MEDS ORDERED: NICOTINE 21 MG/24 HR TDSY TD ONE (03:15)
[2020-10-03] MEDS ORDERED: MAGNESIUM SULFATE / D5W 1 GM/100 ML BAG IV ONE (03:58)
[2020-10-03] MEDS ORDERED: ONDANSETRON INJ 2 MG/ML 2 ML VIAL IV PRN (03:58)
[2020-10-03] MEDS: SODIUM CHLORIDE 0.9% 1000ML 1,000 ML IV SCH ×2 (04:14→16:03)
[2020-10-03] MEDS ORDERED: DEXAMETHASONE SOD INJ 4 MG/ML VIAL ONE (05:21)
[2020-10-03] MEDS: AMPICILLIN/SULBACTAM SOD 3,000 MG in 0.9 % SODIUM CHLORIDE 100 ML IV SCH ×3 (06:12→17:50)
[2020-10-03] MEDS: dexAMETHasone 4 MG in SYRINGE 0 ML IV SCH ×3 (06:12→17:51)
--- NOTE | 2020-10-03 08:35 | CT Scan Report ---
CT SCAN OF THE NECK WITH IV CONTRAST CLINICAL HISTORY: Facial swelling. COMPARISON STUDY: No priors. TECHNIQUE: Following the IV administration of 93 cc of Optiray 320, CT scan of the soft tissues of e neck was performed from the skull base to the upper chest. Images are reviewed in the axial, sagitt al, and coronal planes. IV contrast was administered without complication. A dose lowering techniqu e was utilized adhering to the principles of ALARA. CT DOSE: 642.95 mGy.cm FINDINGS: Dentition and pharynx: There are numerous dental caries identified. There is a large periapical lucen cy involving a left mandibular molar as seen on image #1034. There is associated posterior cortical b reakthrough there is a 1.5 x 1.5 x 0.9 cm abscess deep to the mandible at this site seen on image #24 2. There is marked inflammatory trace infiltration throughout the left sublingual and submandibular s oft tissues, as well as is infiltration of the left parapharyngeal fat. This mildly effaces the left aspect of the airway. There is no evidence of mass lesion. The vocal cords are symmetric. The parapha ryngeal fat is well maintained. The prevertebral/retropharyngeal soft tissues are within normal limit s. The epiglottis is normal. The left jugular digastric muscle is thickened and hyperemic. There is a lso thickening and hyperemia of the left platysma. There is soft tissue inflammation seen below the c hin in the anterior upper neck. Lymphadenopathy: There are mildly enlarged and hyperemic left subarticular and cervical lymph nodes. These measure up to 1.3 cm and are likely reactive Thyroid: Normal in size and attenuation. Salivary glands: The parotid and submandibular glands are within normal limits. Brain parenchyma: The visualized brain parenchyma at the skull base is normal in appearance. Vascular structures: The carotid arteries and jugular veins are patent. Skeletal structures: Imaged portions of the calvarium at the skull base are within normal limits. The cervical spine appears intact. No lytic or blastic lesion is seen. Orbits: The bony orbits are intact. Orbital contents are normal as visualized. Sinuses and mastoids: There is near complete opacification of the maxillary sinuses. There is subtota l opacification of the frontal sinuses. Moderate mucosal thickening is noted within the anterior ethm oids. The sphenoid sinuses are clear. The mastoid air cells are well pneumatized. Lung apices: Mild emphysematous change is noted. Upper lobe lung parenchyma is otherwise clear as alisson ged. IMPRESSION: 1. Numerous dental caries are identified. Follow-up with dentistry is recommended. 2. There is a large periapical lucency with cortical breakthrough involving a left mandibular molar, with a 1.5 cm dental abscess deep to the mandible at this site. 3. There is marked inflammatory change/infection throughout the left sublingual and submandibular sof t tissues. There is also infiltration of the left parapharyngeal fat. Pancho's angina is not excluded . 4. The inflammatory process mildly effaces the left aspect of the airway. 5. Inflammatory change is seen within the left jugulodigastric and platysma muscles. 6. Mildly enlarged and hyperemic left cervical lymph nodes are likely reactive. 7. Paranasal sinus disease as above. 8. Mild emphysema. ACT 112: Negative or not required by law. Electronically signed by: Carlito Richardson M.D. 10/03/2020 8:33 AM
--- NOTE | 2020-10-03 08:54 | Consultation Report ---
DATE OF CONSULTATION: 10/03/2020. CHIEF COMPLAINT: Pain and swelling in the left mandibular region. HISTORY OF PRESENT ILLNESS: In summary, the patient is a 34-year-old man with approximately a 24-jarvis r history of pain and swelling on the left side. He presented to the ER last night for further evalu ation and management. He has not had any fevers, difficulty breathing, difficulty swallowing, but he has longstanding dental caries. PAST MEDICAL HISTORY: I will refer you to his admission H and P and ER documentation. In summary, vera gonzales is generally healthy with a history of recent diagnosis of COVID-19, tobacco dependence. He has a history of thrombocytopenia, hypomagnesemia and essential hypertension. PHYSICAL EXAMINATION: He is awake and alert, in no distress seen bedside in the ER. There is minimal left facial swelling. On palpation of the neck, there is slight fullness along the left angle of th e mandible without fluctuance. There is no appreciable overlying erythema. There is no significant lymphadenopathy. The right side is within normal limits. Oral examination shows full opening withou t any trismus. There is no elevation of the tongue. He has a very poorly kept dentition with rampan t caries in nearly all of his remaining teeth, especially bad in the posterior left mandible involvin g partially erupted wisdom tooth as well as a second mandibular molar. There is mild erythema in the lingual gingiva. There is no elevation of the left floor of mouth, but it is tender to palpation. Y ou can palpate some mild fullness on the lingual mandible in the region of the adjacent teeth roots. His airway is widely patent. LABORATORY DATA: His CT scan shows rampant caries with a left mandibular periapical lesion and associ ated abscess formation. This measures just over a centimeter in size. There is some mass effect in the surrounding floor of mouth tissues, but the abscess is immediately adjacent to the mandible and a ppears to be largely contained in the periosteum. The submandibular space proper is without any flui d collection or even much of any stranding and his airway is widely patent radiographically as well. His platelet count today is 125,000. His coags were normal and he has a white count of 4.2, which is similar to his baseline of 3.6. IMPRESSION AND RECOMMENDATIONS: Odontogenic infection of the left mandible involving the mandibular molar teeth. This is an acute on chronic infection seems contained and not involving a significant s urrounding edema or any immediate threat to his airway. I would anticipate this would respond prompt ly and favorably to antibiotic therapy. The definitive resolution will require removal of the teeth and any residual infection will be drained at that time. I have seen the term Pancho's angina applied to this gentleman, I want to make it clear that this is a periapical abscess with some minor involvement in the left floor of mouth, but this is not a Pancho 's angina that would be involving bilateral deep neck spaces. The prognosis for the management of this infection is quite good. To be very careful with his management, a 24-hour admission for IV antibiotics seems prudent. I brett r the use of IV Unasyn and then a 24 hours transition to oral Augmentin, he can then follow up with sarah gonzales in the office for removal of the teeth and drainage of any residual infection. Thank you very much for involving me in his care. Job ID: [id number]
[2020-10-03 09:52] LABS: Hematocrit (blood only) 47.4 % (42-52); Hemoglobin 16.3 g/dL (14.0-18.0); Immature Granulocytes # (auto) 0.01 K/uL (0.00-0.02); Immature Granulocytes % (auto) 0.1 %; Lymphocytes % (auto) 9.7 %; Mean Corpuscular Hemoglobin 32.9 pg (25-34); Mean Corpuscular Hgb Conc 34.4 g/dL (32-36); Mean Corpuscular Volume 95.8 fL (80-100); Mean Platelet Volume 9.9 fL (7.4-10.4); Monocytes # (auto) 0.18 K/uL (0.11-0.59); Monocytes % (auto) 2.5 %; Neutrophils % (auto) 87.7 %; Platelet Count 131 K/uL (130-400); RDW Coefficient of Variation 16.3 % (11.5-14.5); RDW Standard Deviation 55.6 fL (36.4-46.3); Red Blood Count 4.95 M/uL (4.7-6.1); White Blood Count 7.19 K/uL (4.8-10.8)
--- NOTE | 2020-10-03 17:36 | Electrocardiogram Report ---
Test Reason : Blood Pressure : / mmHG Vent. Rate : 078 BPM Atrial Rate : 078 BPM P-R Int : 136 ms QRS Dur : 100 ms QT Int : 396 ms P-R-T Axes : 049 -56 025 degrees QTc Int : 451 ms Normal sinus rhythm Left axis deviation Incomplete right bundle branch block Abnormal ECG When compared with ECG of 30-OCT-2019 22:40, Criteria for Inferior infarct are no longer Present Confirmed by Eddie Chu ([id number]) on 10/03/2020 5:36:35 PM Referred By: REFERRED SELF Confirmed By:Broderick Chu
--- NOTE | 2020-10-03 18:04 | Discharge Summary ---
Date of Service October 03, 2020 Admission HPI Per Admitting Provider Kyaw is a 34 yo gentleman who came to the [facility] ED for evaluation of left sided jaw/facial swelling. It started on the morning of 10/02/20 when he woke up; it progressed as the day went on. He denies any drooling, changes to his voice, difficulty swallowing (although it is slightly uncomfortable to do so), or trouble breathing. Prior to this, he had been in his usual state of health. No fevers/chills, con gestion, cough, diarrhea, nausea/vomiting, chest pain, rashes. He has not lost his sense of taste or smell. He was vaccinated against COVID 19. He denies any known positive contacts. He does not have any formal dental care - he has apparently contacted [facility] but he was told he makes "too much." In the ED, he was afebrile, HR was elevated to 109, BP was stable. Breathing well on room air. WBC was normal. Hgb was normal, platelets low at 125k/uL. Lactate elevated to 2.8. Coags WNL. Mag low at 1.6, electrolytes otherwise WNL. COVID 19 positive. Blood cultures pending. Soft Tissues Neck CT showing evidence of an odontogenic infection from the left 2nd mandibular molar with associated abscess formation. Adjacent soft tissue swelling in the left submandibular space; probable involvement of the left sublingual space, suggestive of Ludwigs angina. Patient was given 10mg IV Dexamethasone, 3g IV Unasyn, 2.5 liters of NSS in the ED. Principal Diagnosis Periodontal abscess with pain Ludewig's angina ruled out Discharge Exam The patient appeared well dental caries are present mandible slightly tender on the left Vital signs as documented. Lungs are clear to auscultation and appear unlabored Cardiac exam, Rhythm is regular.. No murmurs, rubs or gallops. Abdominal exam reveals normal bowel sounds, soft non tender, no masses Extremities are nonedematous and both pedal pulses are normal. Neurologic exam is alert and oriented, no focal loss of strength or sensation Skin is without bruises or rashes Psychologically is without concerns for anxiety or depression. Discharge Data Allergies Allergy/AdvReac Type Severity Reaction Status Date / Time No Known Allergies Allergy Unverified 10/02/20 23:20 Consultations 10/03/20 01:50 ED Decision to Admit Stat 10/03/20 02:31 Consult Oromaxillofacial Surgery Routine Ordered Studies 10/02/20 22:49 CT soft tissue neck w con Urgent Hospital Course (1) Periodontal abscess: soft tissue neck CT showing evidence of an odontogenic infection from the left 2nd mandibular molar with associated abscess formation. Overlying platysmal thickening and fat stranding, extending to the right. Adjacent soft tissue swelling in the left submandibular space; probable involvement of the left sublingual space. - will have 24 hours of unasyn and be d/c on augmentin - follow blood cultures (2) COVID: - tested positive on admission - does not appear to symptomatic from COVID 19 -strongly reinforced to home isolte - covid precautions (3) Tobacco dependence: - nicoderm patch, councelled on smoking cessation (4) Thrombocytopenia: - platelets at 125 k/Ul - likely reactive due to infection (5) Hypomagnesemia: - Mag level 1.6 on admission replete (6) Benign essential hypertension: Total Time Total Time Spent Total Time Spent (In Minutes): It required greater than 30 minutes to prepare this patient for discharge Discharge Plan Discharge Items Patient Disposition: Home - Self-Care Reason For Visit: CHAZ ANGINA Discharge Diagnosis: jluis odontal abscess dental carries Condition on Discharge: Fair Activity: Per Instructions section Activity Comment: home quarenteen, no work till 10/13/20 Non-emergency contact: Primary Care Provider Call non-emergency contact if: you have any medication questions and you have a fever Follow-up/Referrals: Artemio Friend III, CRNP [Primary Care Provider] - Diet: Regular Addtl Attending Provider Instructions: Home Isolation COVID-19 Instructions use tylenol and ibuprofen for pain control, consider getting oragel or generic to help tooth pain Off work , may return to work 10/13/20 The following information about Home Isolation is from the CDC Website: https://www.cdc.gov/coronavirus/2019-ncov/hcp/wtvybhlm-pejdwya-awskvn.html Stay home except to get medical care People who are mildly ill with COVID-19 are able to isolate at home during their illness. You should restrict activities outside your home, except for getting medical care. Do not go to work, school, or public areas. Avoid using public transportation, ride-sharing, or taxis. Separate yourself from other people and animals in your home People: As much as possible, you should stay in a specific room and away from other people in your home. Also, you should use a separate bathroom, if available. Animals: You should restrict contact with pets and other animals while you are sick with COVID-19, just like you would around other people. Although there have not been reports of pets or other animals becoming sick with COVID-19, it is still recommended that people sick with COVID-19 limit contact with animals until more information is known about the virus. When possible, have another member of your household care for your animals while you are sick. If you are sick with COVID-19, avoid contact with your pet, including petting, snuggling, being kissed or licked, and sharing food. If you must care for your pet or be around animals while you are sick, wash your hands before and after you interact with pets and wear a face mask. Call ahead before visiting your doctor If you have a medical appointment, call the healthcare provider and tell them that you have or may have COVID-19. This will help the healthcare providers office take steps to keep other people from getting infected or exposed. Wear a face mask You should wear a face mask when you are around other people (e.g., sharing a room or vehicle) or pets and before you enter a healthcare providers office. If you are not able to wear a face mask (for example, because it causes trouble breathing), then people who live with you should not stay in the same room with you, or they should wear a face mask if they enter your room. Cover your coughs and sneezes Cover your mouth and nose with a tissue when you cough or sneeze. Throw used tissues in a lined trash can. Immediately wash your hands with soap and water for at least 20 seconds or, if soap and water are not available, clean your hands with an alcohol-based hand nitrocellulose maker that contains at least 60% alcohol. Clean your hands often Wash your hands often with soap and water for at least 20 seconds, especially after blowing your nose, coughing, or sneezing; going to the bathroom; and before eating or preparing food. If soap and water are not readily available, use an alcohol-based hand nitrocellulose maker with at least 60% alcohol, covering all surfaces of your hands and rubbing them together until they feel dry. Soap and water are the best option if hands are visibly dirty. Avoid touching your eyes, nose, and mouth with unwashed hands. Avoid sharing personal household items You should not share dishes, drinking glasses, cups, eating utensils, towels, or bedding with other people or pets in your home. After using these items, they should be washed thoroughly with soap and water. Clean all high-touch surfaces everyday High touch surfaces include counters, tabletops, doorknobs, bathroom fixtures, toilets, phones, keyboards, tablets, and bedside tables. Also, clean any surfaces that may have blood, stool, or body fluids on them. Use a household cleaning spray or wipe, according to the label instructions. Labels contain instructions for safe and effective use of the cleaning product including precautions you should take when applying the product, such as wearing gloves and making sure you have good ventilation during use of the product. Monitor your symptoms Seek prompt medical attention if your illness is worsening (e.g., difficulty breathing).Beforeseeking care, call your healthcare provider and tell them that you have, or are being evaluated for, COVID-19. Put on a face mask before you enter the facility. These steps will help the healthcare providers office to keep other people in the office or waiting room from getting infected or exposed. Ask your healthcare provider to call the local or state health department. Persons who are placed under active monitoring or facilitated self- monitoring should follow instructions provided by their local health department or occupational health professionals, as appropriate. When working with your local health department check their available hours. If you have a medical emergency and need to call 911, notify the dispatch personnel that you have, or are being evaluated for COVID-19. If possible, put on a face mask before emergency medical services arrive. Discontinuing home isolation Patients with confirmed COVID-19 should remain under home isolation precautions until the risk of secondary transmission to others is thought to be low. The decision to discontinue home isolation precautions should be made on a [id number] basis, in consultation with healthcare providers and state and local health departments. Pending Studies at Discharge: No Stand-Alone Forms: [facility], Work/School Release, Smoking Cessation Medications and DC Order Prescriptions: New amoxicillin-pot clavulanate [Augmentin] 875-125 mg tablet 1 tab PO BID Qty: 30 RF: 0 Continued lisinopril 20 mg tablet 20 mg PO DAILY Qty: 30 RF: 2 metoprolol succinate 25 mg tablet extended release 24 hr 25 mg PO DAILY Qty: 90 RF: 1 Discharge Orders: Discharge Order (Routine); Ordered 10/03/20 Ordered By: Emmanuel Harvey Admission Data Admit Date/Time: 10/03/20 02:25 Attending Provider: Emmanuel Harvey Admit Provider: Gill Boogie Primary Care Provider: Artemio Friend III Other Providers: Sherwin Gramajo ; Edelmira Mei Coding Level of Care Code D/C DAY MANAGEMENT >30 MINS Diagnoses COVID U07.1 Tobacco dependence F17.200 Thrombocytopenia D69.6 Hypomagnesemia E83.42 Benign essential hypertension I10 Periodontal abscess K05.219
--- NOTE | 2020-10-03 21:15 | Billing Data ---
Date of Service October 03, 2020 Coding Level of Care Code 84571 Initial Inpt Care Lvl 2
[2020-10-04] MEDS ORDERED: dexAMETHasone 6 MG in SYRINGE 0 ML IV SCH (02:30)
== END 2020-10-04 08:02 | disposition home or self-care (01) | DRG 157 ==
LOC: ED 22:27 → EDINP 10-03 02:25 → SUATTDRO 10-03 02:25 → EDINP 10-03 03:52